=== PATIENT | male | born 1985 | race African-American/Black ===

== ENCOUNTER 2021-02-21 10:00 | Emergency (ER) | payer MEDICARE ==
[2021-02-21 11:10] LABS: #Basophils 0.1 10x3/uL (0.0-0.2); #Eosinphils 0.3 10x3/uL (0.0-0.5); #Monocytes 0.4 10x3/uL (0.0-1.1); %Basophils 1.6 % (0.0-2.0); %Eosinophils 8.4 % (0.0-6.0); %Lymphocytes 23.8 % (18.0-47.0); %Monocytes 11.6 % (0.0-10.0); %Neutrophils 53.8 % (40.0-75.0); Hemoglobin 12.1 g/dL (13.5-17.5); Mean Corpuscular HGB CONC 30.9 g/dL (32.0-36.0); Mean Corpuscular Hemoglobin 27.9 pg (27.0-33.0); Mean Corpuscular Volume 90.3 fl (81.2-95.1); Mean Platelet Volume 12.8 fl (7.4-10.4); Red Blood Cell (RBC) Count 4.33 10x6/uL (4.32-5.72); White Blood Cell (WBC) Count 3.7 10x3/uL (3.5-10.5)
[2021-02-21 11:11] LABS: Platelet Count 87 10x3/uL (150-450)
[2021-02-21 11:31] LABS: CKMB 2.9 ng/mL (0-6.6)
[2021-02-21 11:55] LABS: INR-International Normal Ratio 1.2; PTT 27.3 sec (22.0-33.0); Prothrombin Time 13.5 sec (9.5-12.1)
[2021-02-21 12:07] LABS: ALT (SGPT) 10 U/L (8-55); AST (SGOT) 19 U/L (5-34); Albumin 3.7 g/dL (3.5-5.0); Alkaline Phosphatase 91 U/L (40-110); Anion Gap 14 mmol/L (10-20); BUN (Urea Nitrogen) 25 mg/dL (8.9-20.6); Bilirubin, Total 1.3 mg/dL (0.2-1.2); Calc. Creatinine Clearance 0 mL/min (70-130); Calcium 9.2 mg/dL (7.8-10.44); Carbon Dioxide 21 mmol/L (22-29); Chloride 108 mmol/L (98-107); Glucose 90 mg/dL (70-105); Protein, Total 7.7 g/dL (6.0-8.3); Sodium 138 mmol/L (136-145)
== END 2021-02-21 12:14 | disposition home or self-care (01) ==
LOC: CSHERS 10:00
DX: I83.892 Varicose veins of left lower extremity with other complications (principal); R79.1 Abnormal coagulation profile; I48.92 Unspecified atrial flutter; G47.30 Sleep apnea, unspecified; E66.9 Obesity, unspecified; M10.9 Gout, unspecified; I13.0 Hypertensive heart and chronic kidney disease with heart failure and stage 1 through stage 4 chronic kidney disease, or unspecified chronic kidney disease; N18.9 Chronic kidney disease, unspecified; I50.9 Heart failure, unspecified; Z79.899 Other long term (current) drug therapy
CPT/HCPCS: 80053; 82553; 84484; 85025; 85610; 85730; 99283

== ENCOUNTER 2021-12-21 02:39 | Inpatient (IN) | payer MEDICARE, OTHER ==
[2021-12-21 03:08] LABS: #Basophils 0.1 10x3/uL (0.0-0.2); #Eosinphils 0.1 10x3/uL (0.0-0.5); #Monocytes 1.2 10x3/uL (0.0-1.1); #Neutrophils 13.5 10x3/uL (1.5-8.4); %Basophils 0.4 % (0.0-2.0); %Eosinophils 0.8 % (0.0-6.0); %Lymphocytes 5.1 % (18.0-47.0); %Monocytes 7.5 % (0.0-10.0); %Neutrophils 85.6 % (40.0-75.0); Hemoglobin 10.2 g/dL (13.5-17.5); Mean Corpuscular HGB CONC 32.8 g/dL (32.0-36.0); Mean Corpuscular Hemoglobin 27.3 pg (27.0-33.0); Mean Corpuscular Volume 83.2 fl (81.2-95.1); Mean Platelet Volume 9.9 fl (7.4-10.4); Platelet Count 133 10x3/uL (150-450); RBC Distribution Width 16.7 % (11.5-14.5); Red Blood Cell (RBC) Count 3.74 10x6/uL (4.32-5.72); White Blood Cell (WBC) Count 15.7 10x3/uL (3.5-10.5)
[2021-12-21 03:18] LABS: INR-International Normal Ratio 1.3; PTT 30.1 sec (22.0-33.0); Prothrombin Time 14.6 sec (9.5-12.1)
[2021-12-21 03:26] LABS: ALT (SGPT) Less than 6 U/L (8-55); AST (SGOT) 12 U/L (5-34); Albumin 2.4 g/dL (3.5-5.0); Alkaline Phosphatase 57 U/L (40-110); Anion Gap 20 mmol/L (10-20); BUN (Urea Nitrogen) 120 mg/dL (8.9-20.6); Bilirubin, Total 0.7 mg/dL (0.2-1.2); Calc. Creatinine Clearance 0 mL/min (70-130); Calcium 8.3 mg/dL (7.8-10.44); Carbon Dioxide 13 mmol/L (22-29); Chloride 104 mmol/L (98-107); Globulin 4.7 g/dL (2.4-3.5); Glucose 116 mg/dL (70-105); Potassium 4.5 mmol/L (3.5-5.1); Protein, Total 7.1 g/dL (6.0-8.3); Sodium 132 mmol/L (136-145)
[2021-12-21 03:47] LABS: SARS-CoV-2 NAA Rapid Test Not Detected (NotDetected)
[2021-12-21 03:58] LABS: CKMB 1.3 ng/mL (0-6.6)
[2021-12-21] MEDS ORDERED: Aspirin Chewable 81 MG TAB ONE (04:00)
[2021-12-21] MEDS ORDERED: Albumin 25% 100 ML ONE (05:30)
[2021-12-21] MEDS ORDERED: Albumin 25% 25 GM/100 ML BOT IVPB SCH ×3 (05:30→15:30)
[2021-12-21] MEDS ORDERED: Acetaminophen 325 MG TAB PO SCH (05:30)
[2021-12-21] MEDS ORDERED: Vancomycin 1.5 GRAM/300 ML BAG 1.5 GM in Premix Bag 1 BAG IVPB SCH (05:30)
[2021-12-21] MEDS ORDERED: Ondansetron PF 4 MG/2 ML Vial IVP PRN (05:39)
[2021-12-21] MEDS ORDERED: Guaifenesin DM 100-10/5 ML UDCUP PO PRN (05:39)
[2021-12-21] MEDS ORDERED: Calcium Carbonate 500 MG ChewTAB PO PRN (05:39)
[2021-12-21] MEDS ORDERED: Cefepime 2 GM VIAL ONE (05:47)
[2021-12-21] MEDS ORDERED: Argatroban (ESRD) 250 MG/2.5 ML IVPB SCH (06:00)
[2021-12-21] MEDS ORDERED: Sodium Chloride 0.9% 500 ML IV SCH (06:00)
[2021-12-21] MEDS ORDERED: Argatroban (ESRD) 250 MG in Sodium Chloride 0.9% 250 ML 250 ML IVPB SCH (06:30)
[2021-12-21] MEDS ORDERED: [UNRECOGNIZED DRUG - REMARK] IVPB PRN (06:32)
[2021-12-21 06:34] LABS: INR-International Normal Ratio 1.4; PTT 29.9 sec (22.0-33.0)
[2021-12-21 07:31] VITALS: BMI 34.6
[2021-12-21 08:13] LABS: Actual Bicarbonate (HCO3v) 13 mEq/L (22-28); Base Excess -12.4 mEq/L (-2.0 to +3.0); Calcium, Ionized (venous) 1.11 mmol/L (1.16-1.32); Chloride (VBG) 107 mmol/L (98-106); Hemoglobin (Hb) 10.3 g/dL (13.2-17.3); Potassium (VBG) 4.59 mmol/L (3.70-5.30); Puncture Site Other Site; Sodium 139.9 mmol/L (133-146)
[2021-12-21 08:52] LABS: CKMB 1.5 ng/mL (0-6.6)
[2021-12-21] MEDS ORDERED: Aspirin 81 mg Enteric Coated Tablet ONE (09:00)
[2021-12-21] MEDS ORDERED: Pantoprazole 40 MG VIAL ONE (09:01)
[2021-12-21] MEDS: Aspirin 81 mg Enteric Coated Tablet PO SCH (09:11)
[2021-12-21] MEDS: Pantoprazole 40 MG VIAL IVP SCH (09:11)
[2021-12-21 09:21] LABS: Bilirubin Neg (Negative); Blood, Urine 25 (Negative); Clarity Clear (Clear); Glucose, Urine (Dipstick) Normal (Negative); Ketone, Urine 5 mg/dL (Negative); Leukocyte 500 (Negative); Nitrite Negative (Negative); Protein, Urine (Dipstick) 30 mg/dl (Neg-Trace); Specific Gravity, Urine 1.025 (1.002-1.036); Urobilinogen Normal mg/dL (Less than 2)
[2021-12-21 09:35] LABS: Bacteria/HPF Rare-Few HPF (None Seen); RBC/HPF 0-3 HPF (0-3); Squamous Epithelial 0-3 HPF (0-3)
[2021-12-21 11:49] LABS: PTT 56.8 sec (22.0-33.0)
[2021-12-21 11:59] LABS: Hep B Surf Ag Non-Reactive S/CO (NonReactive)
[2021-12-21 12:02] LABS: HBSAg Index 0.22 S/CO (0-0.99)
[2021-12-21 12:08] LABS: INR-International Normal Ratio 1.9; Prothrombin Time 20.9 sec (9.5-12.1)
[2021-12-21 12:19] LABS: CKMB 2.2 ng/mL (0-6.6)
[2021-12-21] MEDS ORDERED: Vancomycin HCl 1.5 GM in Sodium Chloride 0.9% 250 ML 300 ML IVPB SCH (13:45)
[2021-12-21] MEDS ORDERED: Vancomycin 1 GM in Premix Bag 1 BAG IVPB SCH (13:45)
[2021-12-21] MEDS ORDERED: Vancomycin HCl 1.25 GM in Sodium Chloride 0.9% 250 ML 250 ML IVPB SCH (13:45)
[2021-12-21] MEDS ORDERED: HOLD VANCOMYCIN FOR LEVEL >20 FS SCH (13:45)
[2021-12-21] MEDS ORDERED: Cefepime 1 GM VIAL ONE (15:08)
[2021-12-21 18:14] LABS: INR-International Normal Ratio 2.6; PTT 62.4 sec (22.0-33.0); Prothrombin Time 27.2 sec (9.5-12.1)
[2021-12-21] MEDS: Cefepime 1 GM in Sodium Chloride 0.9% 100 ML IVPB SCH (18:27)
[2021-12-21] MEDS ORDERED: Azithromycin 500 MG in Sodium Chloride 0.9% 250 ML 250 ML IVPB SCH (21:00)
[2021-12-22 00:41] LABS: INR-International Normal Ratio 3.2; Prothrombin Time 33.9 sec (9.5-12.1)
[2021-12-22 00:42] LABS: PTT 71.8 sec (22.0-33.0)
[2021-12-22 04:22] LABS: #Basophils 0.1 10x3/uL (0.0-0.2); #Eosinphils 0.2 10x3/uL (0.0-0.5); #Monocytes 1.7 10x3/uL (0.0-1.1); #Neutrophils 15.9 10x3/uL (1.5-8.4); %Basophils 0.4 % (0.0-2.0); %Eosinophils 1.1 % (0.0-6.0); %Lymphocytes 4.2 % (18.0-47.0); %Monocytes 8.8 % (0.0-10.0); %Neutrophils 84.7 % (40.0-75.0); Hemoglobin 9.3 g/dL (13.5-17.5); Mean Corpuscular HGB CONC 31.2 g/dL (32.0-36.0); Mean Corpuscular Hemoglobin 26.1 pg (27.0-33.0); Mean Corpuscular Volume 83.5 fl (81.2-95.1); Mean Platelet Volume 10.3 fl (7.4-10.4); Platelet Count 139 10x3/uL (150-450); RBC Distribution Width 16.5 % (11.5-14.5); Red Blood Cell (RBC) Count 3.57 10x6/uL (4.32-5.72); White Blood Cell (WBC) Count 18.7 10x3/uL (3.5-10.5)
[2021-12-22 04:36] LABS: Vancomycin, Random 16.4 ug/mL (See Comment)
[2021-12-22 04:38] LABS: ALT (SGPT) Less than 6 U/L (8-55); AST (SGOT) 13 U/L (5-34); Albumin 2.8 g/dL (3.5-5.0); Alkaline Phosphatase 57 U/L (40-110); Anion Gap 16 mmol/L (10-20); BUN (Urea Nitrogen) 67 mg/dL (8.9-20.6); Bilirubin, Total 0.8 mg/dL (0.2-1.2); Calc. Creatinine Clearance 22 mL/min (70-130); Calcium 8.2 mg/dL (7.8-10.44); Carbon Dioxide 19 mmol/L (22-29); Chloride 104 mmol/L (98-107); Globulin 4.2 g/dL (2.4-3.5); Glucose 134 mg/dL (70-105); Potassium 3.6 mmol/L (3.5-5.1); Sodium 135 mmol/L (136-145)
[2021-12-22 04:52] LABS: INR-International Normal Ratio 3.3; Prothrombin Time 34.4 sec (9.5-12.1)
[2021-12-22 04:58] LABS: PTT 73.5 sec (22.0-33.0)
[2021-12-22] MEDS: Aspirin 81 mg Enteric Coated Tablet PO SCH (07:52)
[2021-12-22] MEDS: Pantoprazole 40 MG VIAL IVP SCH (07:52)
[2021-12-22] MEDS ORDERED: Vancomycin 1 GM in Premix Bag 1 BAG IVPB SCH (09:00)
[2021-12-22] MEDS ORDERED: Vancomycin HCl 750 MG in Sodium Chloride 0.9% 250 ML 250 ML IVPB SCH (10:00)
[2021-12-22] MEDS: Cefepime 1 GM in Sodium Chloride 0.9% 100 ML IVPB SCH (14:02)
[2021-12-22] MEDS ORDERED: Lidocaine 1% PF 5 ML VIAL ONE (14:30)
[2021-12-22] MEDS ORDERED: Sodium Bicarbonate 2.5 MEQ/5 ML VIAL ONE (14:31)
[2021-12-22 15:06] LABS: Hep C IgG Ab Non-Reactive (NonReactive); Hep C Index 0.19 S/CO (0-0.79)
[2021-12-22] MEDS ORDERED: Albumin 25% 25 GM/100 ML BOT IVPB SCH (16:00)
[2021-12-22 16:05] LABS: HBSAB Concentration 83.33 mIU/mL; Hep B Surf AB Reactive (NonReactive)
[2021-12-22 17:13] LABS: Hep B Core Total Ab Non-Reactive (NonReactive); Hep B Core Total Index 0.29 S/CO (0-0.79)
[2021-12-22 18:22] LABS: BF Color Yellow; Body Fluid Source Ascites Body Fluid; Clarity Hazy (Clear); Tube # EDTA
[2021-12-22 18:23] LABS: BF Segmented Neutrophils 56 %; Cell Count Non Hematic 32 %; Lymphocytes 12 %
[2021-12-22] MEDS: Acetaminophen 325 MG TAB PO PRN (23:01)
[2021-12-22] MEDS: Azithromycin 500 MG in Sodium Chloride 0.9% 250 ML 250 ML IVPB SCH (23:04)
[2021-12-23] MEDS ORDERED: Phytonadione 10 MG/ML AMP SC SCH (02:15)
[2021-12-23 03:55] LABS: #Basophils 0.1 10x3/uL (0.0-0.2); #Eosinphils 0.2 10x3/uL (0.0-0.5); #Monocytes 1.3 10x3/uL (0.0-1.1); #Neutrophils 15.5 10x3/uL (1.5-8.4); %Basophils 0.3 % (0.0-2.0); %Eosinophils 1.3 % (0.0-6.0); %Lymphocytes 5.1 % (18.0-47.0); %Monocytes 7.2 % (0.0-10.0); %Neutrophils 85.5 % (40.0-75.0); Hemoglobin 9.7 g/dL (13.5-17.5); Mean Corpuscular HGB CONC 31.2 g/dL (32.0-36.0); Mean Corpuscular Hemoglobin 26.5 pg (27.0-33.0); Mean Platelet Volume 11.2 fl (7.4-10.4); Platelet Count 126 10x3/uL (150-450); RBC Distribution Width 16.5 % (11.5-14.5); Red Blood Cell (RBC) Count 3.66 10x6/uL (4.32-5.72); White Blood Cell (WBC) Count 18.1 10x3/uL (3.5-10.5)
[2021-12-23 04:13] LABS: ALT (SGPT) Less than 6 U/L (8-55); AST (SGOT) 15 U/L (5-34); Albumin 2.7 g/dL (3.5-5.0); Alkaline Phosphatase 56 U/L (40-110); Anion Gap 17 mmol/L (10-20); BUN (Urea Nitrogen) 70 mg/dL (8.9-20.6); Bilirubin, Total 0.7 mg/dL (0.2-1.2); Calc. Creatinine Clearance 19 mL/min (70-130); Calcium 8.4 mg/dL (7.8-10.44); Carbon Dioxide 17 mmol/L (22-29); Chloride 101 mmol/L (98-107); Glucose 109 mg/dL (70-105); Potassium 3.7 mmol/L (3.5-5.1); Protein, Total 6.7 g/dL (6.0-8.3); Sodium 131 mmol/L (136-145)
[2021-12-23 04:22] LABS: INR-International Normal Ratio 3.7; Prothrombin Time 38.2 sec (9.5-12.1)
[2021-12-23] MEDS ORDERED: Sodium Chloride 0.9% 500 ML IV SCH (04:45)
[2021-12-23] MEDS: Sodium Chloride 0.9% 500 ML IV SCH (05:42)
[2021-12-23 06:38] LABS: PTT 72.7 sec (22.0-33.0)
[2021-12-23] MEDS ORDERED: Norepinephrine 8 MG/0.9% NS 250 ML ONE (09:12)
[2021-12-23] MEDS: Norepinephrine 8 MG/0.9% NS 250 ML IVPB PRN (09:17)
[2021-12-23 09:31] LABS: Vancomycin, Random 20.4 ug/mL (See Comment)
[2021-12-23 09:58] LABS: INR-International Normal Ratio 2.4; PTT 54.6 sec (22.0-33.0)
[2021-12-23 13:10] LABS: Fluid, Bilirubin Total 0.5 mg/dL (Not Available)
[2021-12-23] MEDS: Cefepime 1 GM in Sodium Chloride 0.9% 100 ML IVPB SCH (14:26)
[2021-12-23] MEDS: Azithromycin 500 MG in Sodium Chloride 0.9% 250 ML 250 ML IVPB SCH (22:47)
[2021-12-24 06:34] LABS: Vancomycin, Random 17.9 ug/mL (See Comment)
[2021-12-24] MEDS: Sodium Chloride 0.9% 500 ML IV SCH (06:51)
[2021-12-24 10:40] LABS: Hemoglobin 9.9 g/dL (13.5-17.5)
[2021-12-24 10:55] LABS: Anion Gap 17 mmol/L (10-20); BUN (Urea Nitrogen) 76 mg/dL (8.9-20.6); Calc. Creatinine Clearance 17 mL/min (70-130); Calcium 8.4 mg/dL (7.8-10.44); Carbon Dioxide 17 mmol/L (22-29); Chloride 103 mmol/L (98-107); Glucose 144 mg/dL (70-105); Potassium 3.7 mmol/L (3.5-5.1); Sodium 133 mmol/L (136-145)
[2021-12-24] MEDS: Vancomycin HCl 750 MG in Sodium Chloride 0.9% 250 ML 250 ML IVPB SCH (13:04)
[2021-12-24] MEDS ORDERED: FLU VACC QS2021-22(6MOS UP)/PF 60 MCG/0.5 ML SYRINGE IM ONE (18:00)
[2021-12-25 04:55] LABS: Platelet Count 126 10x3/uL (150-450)
[2021-12-25 04:56] LABS: Hemoglobin 10.1 g/dL (13.5-17.5); Mean Corpuscular HGB CONC 31.3 g/dL (32.0-36.0); Mean Corpuscular Hemoglobin 26.4 pg (27.0-33.0); Mean Corpuscular Volume 84.3 fl (81.2-95.1); Mean Platelet Volume 9.4 fl (7.4-10.4); RBC Distribution Width 16.5 % (11.5-14.5); Red Blood Cell (RBC) Count 3.83 10x6/uL (4.32-5.72)
[2021-12-25 05:01] LABS: Anion Gap 15 mmol/L (10-20); BUN (Urea Nitrogen) 40 mg/dL (8.9-20.6); Calc. Creatinine Clearance 25 mL/min (70-130); Calcium 8.3 mg/dL (7.8-10.44); Carbon Dioxide 21 mmol/L (22-29); Chloride 101 mmol/L (98-107); Glucose 115 mg/dL (70-105); Potassium 3.6 mmol/L (3.5-5.1); Sodium 133 mmol/L (136-145)
[2021-12-25 06:05] LABS: MDiff Complete? YES
[2021-12-25 06:09] LABS: Band 4 % (5-11); Eosinophils 2 % (0-10); Lymphocytes 5 % (21-51); Monocytes 2 % (0-10); Neutrophil 87 % (42-75)
[2021-12-25 07:33] LABS: Ovalocytes SLIGHT = 2-5 cells (100X) (0-1/hpf)
[2021-12-25 07:34] LABS: Platelet Morphology Comment Appears Adequate
[2021-12-25] MEDS ORDERED: Digoxin 0.5 MG/2 ML AMP SLOW IVP SCH (09:30)
[2021-12-25] MEDS ORDERED: Gentamicin 80 MG/2 ML VIAL IM SCH ×2 (13:45→14:00)
[2021-12-25] MEDS: Sodium Chloride 0.9% 500 ML IV SCH ×2 (15:30→19:16)
[2021-12-25] MEDS: Norepinephrine 8 MG/0.9% NS 250 ML IVPB PRN (22:30)
[2021-12-25] MEDS: Rifampin 300 MG CAP PO SCH (22:30)
[2021-12-26 04:02] LABS: Hemoglobin 10.2 g/dL (13.5-17.5); Mean Corpuscular HGB CONC 31.7 g/dL (32.0-36.0); Mean Corpuscular Hemoglobin 26.8 pg (27.0-33.0); Mean Corpuscular Volume 84.5 fl (81.2-95.1); Mean Platelet Volume 9.4 fl (7.4-10.4); RBC Distribution Width 16.9 % (11.5-14.5); Red Blood Cell (RBC) Count 3.81 10x6/uL (4.32-5.72); White Blood Cell (WBC) Count 36.5 10x3/uL (3.5-10.5)
[2021-12-26 04:03] LABS: Platelet Count 95 10x3/uL (150-450)
[2021-12-26 04:15] LABS: ALT (SGPT) 6 U/L (8-55); AST (SGOT) 19 U/L (5-34); Albumin 2.5 g/dL (3.5-5.0); Alkaline Phosphatase 80 U/L (40-110); Anion Gap 19 mmol/L (10-20); BUN (Urea Nitrogen) 49 mg/dL (8.9-20.6); Bilirubin, Total 1.5 mg/dL (0.2-1.2); Calc. Creatinine Clearance 20 mL/min (70-130); Calcium 8.5 mg/dL (7.8-10.44); Carbon Dioxide 19 mmol/L (22-29); Chloride 98 mmol/L (98-107); Globulin 4.4 g/dL (2.4-3.5); Glucose 118 mg/dL (70-105); Potassium 3.7 mmol/L (3.5-5.1); Protein, Total 6.9 g/dL (6.0-8.3); Sodium 132 mmol/L (136-145)
[2021-12-26 04:30] LABS: MDiff Complete? YES
[2021-12-26 04:32] LABS: Band 8 % (5-11); Lymphocytes 2 % (21-51); Monocytes 4 % (0-10); Neutrophil 85 % (42-75); Reactive Lymphocytes 1 % (0-10)
[2021-12-26 04:34] LABS: Platelet Morphology Comment Appears Decreased; RBC Morphology N
[2021-12-26 08:57] LABS: Vancomycin, Random 16.9 ug/mL (See Comment)
[2021-12-26] MEDS: Rifampin 300 MG CAP PO SCH ×2 (09:26→21:21)
[2021-12-26] MEDS ORDERED: Vancomycin HCl 750 MG in Sodium Chloride 0.9% 250 ML 250 ML IVPB SCH ×2 (10:00→12:00)
[2021-12-26] MEDS: Vancomycin HCl 750 MG in Sodium Chloride 0.9% 250 ML 250 ML IVPB SCH (11:24)
[2021-12-26] MEDS: Sodium Chloride 0.9% 500 ML IV SCH (15:54)
[2021-12-26] MEDS: Norepinephrine 8 MG/0.9% NS 250 ML IVPB PRN (16:05)
[2021-12-26] MEDS: Acetaminophen 325 MG TAB PO PRN (23:58)
[2021-12-27 04:34] LABS: Anion Gap 16 mmol/L (10-20); BUN (Urea Nitrogen) 31 mg/dL (8.9-20.6); Calc. Creatinine Clearance 27 mL/min (70-130); Calcium 8.4 mg/dL (7.8-10.44); Carbon Dioxide 22 mmol/L (22-29); Chloride 99 mmol/L (98-107); Glucose 114 mg/dL (70-105); Potassium 3.8 mmol/L (3.5-5.1); Sodium 133 mmol/L (136-145)
[2021-12-27] MEDS: Norepinephrine 8 MG/0.9% NS 250 ML IVPB PRN (04:52)
[2021-12-27 05:01] LABS: Hemoglobin 9.9 g/dL (13.5-17.5); Mean Corpuscular HGB CONC 31.3 g/dL (32.0-36.0); Mean Corpuscular Hemoglobin 26.3 pg (27.0-33.0); Mean Platelet Volume 9.8 fl (7.4-10.4); Platelet Count 76 10x3/uL (150-450); RBC Distribution Width 16.8 % (11.5-14.5); Red Blood Cell (RBC) Count 3.76 10x6/uL (4.32-5.72); White Blood Cell (WBC) Count 29.3 10x3/uL (3.5-10.5)
[2021-12-27 05:37] LABS: MDiff Complete? YES
[2021-12-27 05:39] LABS: Eosinophils 1 % (0-10); Lymphocytes 6 % (21-51); Monocytes 10 % (0-10); Neutrophil 83 % (42-75)
[2021-12-27 05:41] LABS: Hypochromia SLIGHT = 6-15 cells (100X) (0-5/hpf); Platelet Morphology Comment Appears Decreased
[2021-12-27] MEDS: Rifampin 300 MG CAP PO SCH ×2 (09:28→22:36)
[2021-12-27] MEDS ORDERED: Gentamicin Sulfate 80 MG in Premix Bag 1 BAG IVPB PRN (12:08)
[2021-12-27] MEDS: Sodium Chloride 0.9% 500 ML IV SCH (12:47)
[2021-12-27 17:20] LABS: Hemoglobin A1c 5.5 % (4.0-6.0)
[2021-12-27 21:27] LABS: SARS-CoV-2 PCR by NAA Not Detected (NotDetected)
[2021-12-28 05:21] LABS: Anion Gap 16 mmol/L (10-20); BUN (Urea Nitrogen) 37 mg/dL (8.9-20.6); Calc. Creatinine Clearance 23 mL/min (70-130); Calcium 8.3 mg/dL (7.8-10.44); Carbon Dioxide 20 mmol/L (22-29); Chloride 101 mmol/L (98-107); Glucose 104 mg/dL (70-105); Potassium 3.8 mmol/L (3.5-5.1); Sodium 133 mmol/L (136-145)
[2021-12-28 05:37] LABS: Hemoglobin 9.2 g/dL (13.5-17.5); Mean Corpuscular HGB CONC 30.8 g/dL (32.0-36.0); Mean Corpuscular Hemoglobin 26.4 pg (27.0-33.0); Mean Corpuscular Volume 85.9 fl (81.2-95.1); Platelet Count 56 10x3/uL (150-450); RBC Distribution Width 17.1 % (11.5-14.5); Red Blood Cell (RBC) Count 3.48 10x6/uL (4.32-5.72); White Blood Cell (WBC) Count 26.7 10x3/uL (3.5-10.5)
[2021-12-28 07:01] LABS: MDiff Complete? YES
[2021-12-28 07:03] LABS: Hypochromia SLIGHT = 6-15 cells (100X) (0-5/hpf); Platelet Morphology Comment Appears Decreased
[2021-12-28 07:05] LABS: Band 2 % (5-11); Eosinophils 4 % (0-10); Lymphocytes 8 % (21-51); Monocytes 5 % (0-10); Neutrophil 81 % (42-75)
[2021-12-28] MEDS: Sodium Chloride 0.9% 500 ML IV SCH (11:07)
[2021-12-28] MEDS: Rifampin 300 MG CAP PO SCH ×2 (11:07→21:47)
[2021-12-28] MEDS: Loperamide HCl 2 MG CAP PO PRN ×2 (11:50→21:47)
[2021-12-28 15:05] LABS: Troponin I 6.067 ng/mL (< 0.028)
[2021-12-28 18:00] LABS: Troponin I 7.269 ng/mL (< 0.028)
[2021-12-28] MEDS: Norepinephrine 8 MG/0.9% NS 250 ML IVPB PRN (18:08)
[2021-12-29] MEDS: Sodium Chloride 0.9% 500 ML IV SCH ×2 (00:30→20:23)
[2021-12-29 04:08] LABS: Hemoglobin 9.3 g/dL (13.5-17.5); Mean Corpuscular HGB CONC 29.7 g/dL (32.0-36.0); Mean Corpuscular Hemoglobin 25.8 pg (27.0-33.0); Mean Corpuscular Volume 86.7 fl (81.2-95.1); Platelet Count 57 10x3/uL (150-450); RBC Distribution Width 17.1 % (11.5-14.5); Red Blood Cell (RBC) Count 3.61 10x6/uL (4.32-5.72); White Blood Cell (WBC) Count 35.4 10x3/uL (3.5-10.5)
[2021-12-29 04:17] LABS: Anion Gap 16 mmol/L (10-20); BUN (Urea Nitrogen) 45 mg/dL (8.9-20.6); Calc. Creatinine Clearance 19 mL/min (70-130); Calcium 8.4 mg/dL (7.8-10.44); Carbon Dioxide 21 mmol/L (22-29); Chloride 100 mmol/L (98-107); Glucose 118 mg/dL (70-105); Potassium 4.1 mmol/L (3.5-5.1); Sodium 133 mmol/L (136-145)
[2021-12-29 04:21] LABS: MDiff Complete? YES; Manual Diff?? YES
[2021-12-29 04:42] LABS: Band 7 % (5-11); Eosinophils 1 % (0-10); Lymphocytes 2 % (21-51); Monocytes 7 % (0-10); Neutrophil 83 % (42-75); Platelet Morphology Comment Appears Decreased
[2021-12-29 04:44] LABS: Anisocytosis SLIGHT = 6-15 cells (100X) (0-5/hpf); Elliptocytes SLIGHT = 2-5 cells (100X) (0-1/hpf); Helmet Cells SLIGHT = 2-5 cells (100X) (0-1/hpf); Hypochromia SLIGHT = 6-15 cells (100X) (0-5/hpf); Macrocytosis SLIGHT = 6-15 cells (100X) (0-5/hpf); Microcytosis SLIGHT = 6-15 cells (100X) (0-5/hpf); Polychromasia SLIGHT = 2-3 cells (100X) (0-2/hpf); Schistocytes SLIGHT = 2-5 cells (100X) (0-1/hpf)
[2021-12-29] MEDS: Norepinephrine 8 MG/0.9% NS 250 ML IVPB PRN ×2 (08:32→21:05)
[2021-12-29] MEDS: Loperamide HCl 2 MG CAP PO PRN (10:19)
[2021-12-29] MEDS: Rifampin 300 MG CAP PO SCH ×2 (10:19→21:05)
[2021-12-29] MEDS ORDERED: Vancomycin 1 GM in Premix Bag 1 BAG IVPB SCH (12:00)
[2021-12-29] MEDS ORDERED: Gentamicin Sulfate 80 MG in Premix Bag 1 BAG IVPB SCH (12:00)
[2021-12-29 21:36] VITALS: BP 92/56; TEMP 97.5
== END 2021-12-29 21:15 | disposition short-term general hospital (02) | DRG 280 ==
LOC: CSHERS 02:39 → CSHERHOLD 05:31 → CSHICU 16:54
PROVIDERS: ADMIT Student in an Organized Health Care Education/Training Program; ATTEND Hospitalist
PROC: 5A1D70Z Performance of Urinary Filtration, Intermittent, Less than 6 Hours Per Day (ICD-10-PCS; 2021-12-21)
PROC: 30233J1 Transfusion of Nonautologous Serum Albumin into Peripheral Vein, Percutaneous Approach (ICD-10-PCS; 2021-12-21)
PROC: 3E033XZ Introduction of Vasopressor into Peripheral Vein, Percutaneous Approach (ICD-10-PCS; 2021-12-21)
PROC: 0W9G3ZZ Drainage of Peritoneal Cavity, Percutaneous Approach (ICD-10-PCS; principal; 2021-12-22)
PROC: 30233L1 Transfusion of Nonautologous Fresh Plasma into Peripheral Vein, Percutaneous Approach (ICD-10-PCS; 2021-12-23)
PROC: 30233K1 Transfusion of Nonautologous Frozen Plasma into Peripheral Vein, Percutaneous Approach (ICD-10-PCS; 2021-12-23)
PROC: 30283B1 Transfusion of Nonautologous 4-Factor Prothrombin Complex Concentrate into Vein, Percutaneous Approach (ICD-10-PCS; 2021-12-23)
PROC: 05PYX3Z Removal of Infusion Device from Upper Vein, External Approach (ICD-10-PCS; 2021-12-25)
PROC: 06HM33Z Insertion of Infusion Device into Right Femoral Vein, Percutaneous Approach (ICD-10-PCS; 2021-12-25)
PROC: B54BZZA Ultrasonography of Right Lower Extremity Veins, Guidance (ICD-10-PCS; 2021-12-25)
DX: T82.7XXA Infection and inflammatory reaction due to other cardiac and vascular devices, implants and grafts, initial encounter (principal); I21.A1 Myocardial infarction type 2; N18.6 End stage renal disease; J96.01 Acute respiratory failure with hypoxia; G93.41 Metabolic encephalopathy; I61.8 Other nontraumatic intracerebral hemorrhage; I50.31 Acute diastolic (congestive) heart failure; G93.6 Cerebral edema; R65.21 Severe sepsis with septic shock; I33.0 Acute and subacute infective endocarditis; I63.411 Cerebral infarction due to embolism of right middle cerebral artery; A41.1 Sepsis due to other specified staphylococcus; N17.9 Acute kidney failure, unspecified; I42.9 Cardiomyopathy, unspecified; I13.2 Hypertensive heart and chronic kidney disease with heart failure and with stage 5 chronic kidney disease, or end stage renal disease; R18.8 Other ascites; A04.5 Campylobacter enteritis; D68.9 Coagulation defect, unspecified; E66.2 Morbid (severe) obesity with alveolar hypoventilation; Z16.24 Resistance to multiple antibiotics; T82.6XXA Infection and inflammatory reaction due to cardiac valve prosthesis, initial encounter; J44.9 Chronic obstructive pulmonary disease, unspecified; K74.60 Unspecified cirrhosis of liver; M10.9 Gout, unspecified; Z20.822 Contact with and (suspected) exposure to COVID-19; I48.0 Paroxysmal atrial fibrillation; D63.1 Anemia in chronic kidney disease; Y83.8 Other surgical procedures as the cause of abnormal reaction of the patient, or of later complication, without mention of misadventure at the time of the procedure; R29.810 Facial weakness; G83.24 Monoplegia of upper limb affecting left nondominant side; E87.5 Hyperkalemia; I27.20 Pulmonary hypertension, unspecified; E88.09 Other disorders of plasma-protein metabolism, not elsewhere classified; Z88.8 Allergy status to other drugs, medicaments and biological substances; Z91.15 Patient's noncompliance with renal dialysis; Z95.2 Presence of prosthetic heart valve; Z79.899 Other long term (current) drug therapy; Z79.01 Long term (current) use of anticoagulants; Z86.718 Personal history of other venous thrombosis and embolism; Z99.2 Dependence on renal dialysis; Z68.34 Body mass index [BMI] 34.0-34.9, adult
CPT/HCPCS: 36415; 36430; 49083; 70450; 70551; 71045; 76705; 80048; 80053; 80170; 80202; 81001; 82140; 82247; 82274; 82553; 82805; 82945; 83036; 83605; 83615; 83630; 83880; 84157; 84443; 84484; 85014; 85018; 85025; 85610; 85730; 86704; 86706; 86803; 86850; 86900; 86901; 87040; 87045; 87046; 87070; 87077; 87081; 87086; 87149; 87186; 87205; 87324; 87340; 87427; 87449; 89051; 90935; 93005; 93010; 93306; 93970; 94660; 94760; 96365; 96368; C9113; G0257; J0456; J0692; J0883; J1160; J1580; J3370; J3430; J3490; J7030; J7050; P9047; P9059; U0002; U0003; U0005